=== PATIENT | female | born 1990 | race Hispanic/Latino ===

== ENCOUNTER 2024-09-23 23:37 | Emergency (ER) | payer BC, SELFPAY | END 2024-09-24 00:04 | LOC: EEVIPCON 23:37 → NAV ERS 23:37 | DX: S40.811A Abrasion of right upper arm, initial encounter (principal); V89.2XXA Person injured in unspecified motor-vehicle accident, traffic, initial encounter | CPT/HCPCS: 36415; 99283 ==